=== PATIENT | male | born 1950 | race Caucasian/White ===

== ENCOUNTER → 2017-05-09 | Outpatient (CLI) | payer MEDICARE | LOC: RAD 09:18 | DX: M79.604 Pain in right leg (principal); M16.0 Bilateral primary osteoarthritis of hip ==

== ENCOUNTER → 2017-05-14 | Outpatient (CLI) | payer MEDICARE | LOC: RAD 14:00 | DX: M54.5 Low back pain (principal); M48.07 Spinal stenosis, lumbosacral region; M48.06 Spinal stenosis, lumbar region ==

== ENCOUNTER 2018-03-29 09:30 | Outpatient (RCR) | payer MEDICARE | END 2018-03-29 10:00 | disposition home or self-care (01) | LOC: PT 09:30 | DX: M51.36 Other intervertebral disc degeneration, lumbar region (principal) ==

== ENCOUNTER → 2019-06-24 | Outpatient (CLI) | payer MEDICARE ==
[2019-06-24 15:25] LABS: EOS # 0.1 (0.04-0.40); EOS % 1.4 % (0.0-4.0); HEMOGLOBIN 15.8 g/dL (13.5-18.0); LYMPH# 2.2 (1.50-4.00); MEAN CELL VOLUME 92 fl (78-100); MEAN CORPUSCULAR HEMOGLOBIN 31 pg (27-31); MEAN CORPUSCULAR HGB CONC 34 g/dL (33-37); MEAN PLATELET VOLUME 8.9 fl (7.4-10.4); MONO # 0.7 (0.20-0.80); NEU # 6.5 (1.40-6.50); PLATELET COUNT 287 K/mm3 (130-400); RED BLOOD COUNT 5.11 M/mm3 (4.20-5.60); WHITE BLOOD COUNT 9.7 K/mm3 (4.8-10.8)
[2019-06-24 17:31] LABS: ALBUMIN 4.1 g/dL (3.4-4.8); POTASSIUM 4.2 mmol/L (3.5-5.1)
[2019-06-24 17:32] LABS: CALCIUM 9.3 mg/dL (8.3-10.5)
[2019-06-24 17:33] LABS: TOTAL PROTEIN 7.1 g/dL (6.2-8.1)
[2019-06-24 17:35] LABS: TOTAL BILIRUBIN 0.5 mg/dL (0.2-1.2)
== END ==
LOC: LAB 15:03
PROVIDERS: Family Medicine
DX: Z00.00 Encounter for general adult medical examination without abnormal findings (principal); Z12.5 Encounter for screening for malignant neoplasm of prostate; Z12.11 Encounter for screening for malignant neoplasm of colon; Z13.220 Encounter for screening for lipoid disorders; I10 Essential (primary) hypertension

== ENCOUNTER → 2019-08-08 | Outpatient (CLI) | payer MEDICARE ==
[2019-08-08 08:39] LABS: HEMATOCRIT 47.3 % (42.0-52.0); RED BLOOD COUNT 5.07 M/mm3 (4.20-5.60); RED CELL DISTRIBUTION WIDTH 13.3 % (11.5-14.5); WHITE BLOOD COUNT 7.5 K/mm3 (4.8-10.8)
[2019-08-08 08:43] LABS: CALCIUM 9.1 mg/dL (8.3-10.5)
[2019-08-08 08:45] LABS: TOTAL PROTEIN 7.1 g/dL (6.2-8.1)
[2019-08-08 08:46] LABS: TOTAL BILIRUBIN 0.9 mg/dL (0.2-1.2)
[2019-08-08 22:19] LABS: FOLATE (FOLIC ACID) 15.2 ng/mL (7.0-31.4)
[2019-08-09 01:22] LABS: CERULOPLASMIN 22 mg/dL (18-36)
[2019-08-09 16:12] LABS: .COPPER,S 0.91 mcg/mL (())
[2019-08-12 10:57] LABS: VITAMIN E 12.5 mg/L (())
[2019-08-12 15:20] LABS: VITAMIN B1 143 nmol/L (70-180)
== END ==
LOC: LAB 08:03
PROVIDERS: Psychiatry & Neurology Neurology
DX: G20 Parkinson's disease (principal); G60.9 Hereditary and idiopathic neuropathy, unspecified

== ENCOUNTER → 2019-08-19 | Outpatient (CLI) | payer MEDICARE ==
[2019-08-19 11:30] LABS: ALBUMIN 4.3 g/dL (3.4-4.8); POTASSIUM 4.3 mmol/L (3.5-5.1)
[2019-08-19 11:31] LABS: CALCIUM 9.8 mg/dL (8.3-10.5)
[2019-08-19 11:33] LABS: TOTAL PROTEIN 7.6 g/dL (6.2-8.1)
[2019-08-19 11:34] LABS: TOTAL BILIRUBIN 0.7 mg/dL (0.2-1.2)
== END ==
LOC: LAB 10:26
PROVIDERS: Family Medicine
DX: R73.9 Hyperglycemia, unspecified (principal)

== ENCOUNTER → 2020-06-29 | Outpatient (CLI) | payer MEDICARE ==
[2020-06-29 10:00] LABS: EOS # 0.1 (0.04-0.40); EOS % 1.3 % (0.0-4.0); HEMATOCRIT 48.4 % (42.0-52.0); HEMOGLOBIN 16.2 g/dL (13.5-18.0); LYMPH# 1.7 (1.50-4.00); MEAN CELL VOLUME 91 fl (78-100); MEAN CORPUSCULAR HEMOGLOBIN 31 pg (27-31); MEAN CORPUSCULAR HGB CONC 34 g/dL (33-37); MEAN PLATELET VOLUME 8.9 fl (7.4-10.4); MONO # 0.7 (0.20-0.80); NEU # 6.5 (1.40-6.50); PLATELET COUNT 284 K/mm3 (130-400); RED CELL DISTRIBUTION WIDTH 13.1 % (11.5-14.5); WHITE BLOOD COUNT 9.1 K/mm3 (4.8-10.8)
[2020-06-29 10:06] LABS: ALBUMIN 4.2 g/dL (3.4-4.8); POTASSIUM 4.4 mmol/L (3.5-5.1); SODIUM 139 mmol/L (136-145)
[2020-06-29 10:07] LABS: CALCIUM 9.3 mg/dL (8.3-10.5)
[2020-06-29 10:09] LABS: GLUCOSE 156 mg/dL (75-110)
[2020-06-29 10:10] LABS: CARBON DIOXIDE 22 mmol/L (23-31); TOTAL BILIRUBIN 0.6 mg/dL (0.2-1.2)
[2020-06-29 10:14] LABS: AST-SGOT 15 U/L (5-34)
[2020-06-29 10:16] LABS: ALT/SGPT < 6 U/L (0-55)
== END ==
LOC: LAB 09:47
PROVIDERS: Physician Assistant
DX: Z12.5 Encounter for screening for malignant neoplasm of prostate (principal); Z13.29 Encounter for screening for other suspected endocrine disorder; I10 Essential (primary) hypertension; R73.9 Hyperglycemia, unspecified; G20 Parkinson's disease; E78.5 Hyperlipidemia, unspecified

== ENCOUNTER → 2020-11-16 | Outpatient (CLI) | payer MEDICARE ==
[2020-11-16 16:15] LABS: ALBUMIN 4.3 g/dL (3.4-4.8); POTASSIUM 4.1 mmol/L (3.5-5.1)
[2020-11-16 16:17] LABS: CALCIUM 9.1 mg/dL (8.3-10.5)
[2020-11-16 16:18] LABS: TOTAL PROTEIN 7.3 g/dL (6.2-8.1)
[2020-11-16 16:20] LABS: TOTAL BILIRUBIN 0.5 mg/dL (0.2-1.2)
== END ==
LOC: LAB 15:54
PROVIDERS: Family Medicine
DX: E11.9 Type 2 diabetes mellitus without complications (principal); I10 Essential (primary) hypertension; G20 Parkinson's disease

== ENCOUNTER → 2021-03-11 | Outpatient (CLI) | payer MEDICARE | LOC: LAB 11:23 | DX: E11.9 Type 2 diabetes mellitus without complications (principal) ==

== ENCOUNTER → 2021-05-18 | Outpatient (CLI) | payer MEDICARE ==
[2021-05-18 11:43] LABS: BASO # 0.02 (0.02-0.10); EOS # 0.12 (0.04-0.40); EOS % 1.3 % (0.0-4.0); HEMATOCRIT 48.6 % (42.0-52.0); HEMOGLOBIN 16.4 g/dL (13.5-18.0); LYMPH# 2.17 (1.50-4.00); MEAN CELL VOLUME 93 fl (78-100); MEAN CORPUSCULAR HEMOGLOBIN 31 pg (27-31); MEAN CORPUSCULAR HGB CONC 34 g/dL (33-37); MEAN PLATELET VOLUME 8.6 fl (7.4-10.4); MONO # 0.66 (0.20-0.80); NEU # 6.36 (1.40-6.50); PLATELET COUNT 262 K/mm3 (130-400); RED BLOOD COUNT 5.24 M/mm3 (4.20-5.60); RED CELL DISTRIBUTION WIDTH 12.3 % (11.5-14.5); WHITE BLOOD COUNT 9.4 K/mm3 (4.8-10.8)
[2021-05-18 11:46] LABS: ALBUMIN 4.3 g/dL (3.4-4.8); POTASSIUM 4.5 mmol/L (3.5-5.1)
[2021-05-18 11:47] LABS: CALCIUM 9.4 mg/dL (8.3-10.5)
[2021-05-18 11:49] LABS: TOTAL PROTEIN 7.4 g/dL (6.2-8.1)
[2021-05-18 11:50] LABS: TOTAL BILIRUBIN 0.8 mg/dL (0.2-1.2)
== END ==
LOC: LAB 11:05
PROVIDERS: Family Medicine
DX: Z00.00 Encounter for general adult medical examination without abnormal findings (principal); E78.5 Hyperlipidemia, unspecified; E11.9 Type 2 diabetes mellitus without complications

== ENCOUNTER → 2021-11-22 | Outpatient (CLI) | payer MEDICARE | LOC: LAB 11:50 | DX: M19.011 Primary osteoarthritis, right shoulder (principal); M51.36 Other intervertebral disc degeneration, lumbar region; E11.9 Type 2 diabetes mellitus without complications ==

== ENCOUNTER 2021-12-26 10:00 | Outpatient (RCR) | payer MEDICARE | END 2022-01-19 | disposition still patient (30) | LOC: PT | DX: M51.36 Other intervertebral disc degeneration, lumbar region (principal) | CPT/HCPCS: G0283-GP ==

== ENCOUNTER → 2022-06-27 | Outpatient (CLI) | payer MEDICARE | LOC: RAD 08:20 | DX: J20.9 Acute bronchitis, unspecified (principal) ==

== ENCOUNTER → 2022-07-07 | Outpatient (CLI) | payer MEDICARE | LOC: LAB 14:49 | DX: Z00.00 Encounter for general adult medical examination without abnormal findings (principal); E11.9 Type 2 diabetes mellitus without complications; E78.5 Hyperlipidemia, unspecified; I10 Essential (primary) hypertension; E66.9 Obesity, unspecified; G20 Parkinson's disease ==

== ENCOUNTER → 2022-11-20 | Outpatient (CLI) | payer MEDICARE | LOC: RAD 09:54 | DX: G31.84 Mild cognitive impairment of uncertain or unknown etiology (principal) | CPT/HCPCS: Q9967 ==

== ENCOUNTER → 2022-12-04 | Outpatient (CLI) | payer MEDICARE | LOC: LAB 09:47 | DX: E11.9 Type 2 diabetes mellitus without complications (principal) ==

== ENCOUNTER → 2023-12-18 | Outpatient (CLI) | payer MEDICARE ==
[2023-12-18 10:58] LABS: BASO # 0.03 K/mm3 (0.02-0.10); EOS # 0.18 K/mm3 (0.04-0.40); EOS % 2.2 % (0.0-4.0); HEMATOCRIT 47.2 % (42.0-52.0); HEMOGLOBIN 16.1 g/dL (13.5-18.0); LYMPH# 2.19 K/mm3 (1.50-4.00); MEAN CELL VOLUME 92 fl (78-100); MEAN CORPUSCULAR HEMOGLOBIN 31 pg (27-31); MEAN CORPUSCULAR HGB CONC 34 g/dL (33-37); MEAN PLATELET VOLUME 8.7 fl (7.4-10.4); MONO # 0.57 K/mm3 (0.20-0.80); NEU # 5.18 K/mm3 (1.40-6.50); PLATELET COUNT 274 K/mm3 (130-400); RED BLOOD COUNT 5.14 M/mm3 (4.20-5.60); RED CELL DISTRIBUTION WIDTH 12.1 % (11.5-14.5); WHITE BLOOD COUNT 8.2 K/mm3 (4.8-10.8)
[2023-12-18 11:09] LABS: ALBUMIN 4.2 g/dL (3.4-4.8)
[2023-12-18 11:10] LABS: CALCIUM 9.5 mg/dL (8.3-10.5)
[2023-12-18 11:13] LABS: TOTAL BILIRUBIN 0.7 mg/dL (0.2-1.2)
== END ==
LOC: LAB 10:43
PROVIDERS: Physician Assistant
DX: R60.0 Localized edema (principal)

== ENCOUNTER → 2024-01-04 | Outpatient (CLI) | payer MEDICARE ==
[~2024-01-04] MED LIST: CARBIDOPA/LEVODOPA PO; HYDROCHLOROTHIA1 T14 PO; METFORMIN ER500 MG PO; SERTRALINE50 MG PO
== END ==
LOC: LAB 13:21
DX: E11.9 Type 2 diabetes mellitus without complications (principal); E78.5 Hyperlipidemia, unspecified

== ENCOUNTER 2024-08-25 23:17 | Emergency (ER) | payer MEDICARE ==
[~2024-08-25] VITALS: Wt 102.7 kg
[2024-08-25] MEDS ORDERED: ZESTRIL10 M1 PO (23:45)
[2024-08-25] MEDS ORDERED: ELIQUIS5 MG PO (23:45)
[2024-08-25] MEDS ORDERED: dilTIAZem 25 MG/5 ML VIAL IV ONE (23:45)
[2024-08-25] MEDS ORDERED: Ondansetron 4 MG/2 ML VIAL IV ONE (23:45)
[2024-08-25] MEDS ORDERED: HYDROCHLOROTH12.5 M1 PO (23:45)
[2024-08-25] MEDS ORDERED: CARDIZEM CD180 M1 PO (23:46)
[2024-08-25 23:53] LABS: BASO # 0.01 K/mm3 (0.02-0.10); EOS # 0.25 K/mm3 (0.04-0.40); EOS % 2.7 % (0.0-4.0); HEMATOCRIT 44.1 % (42.0-52.0); HEMOGLOBIN 15.1 g/dL (13.5-18.0); LYMPH# 2.49 K/mm3 (1.50-4.00); MEAN CELL VOLUME 92 fl (78-100); MEAN CORPUSCULAR HEMOGLOBIN 32 pg (27-31); MEAN CORPUSCULAR HGB CONC 34 g/dL (33-37); MEAN PLATELET VOLUME 8.9 fl (7.4-10.4); MONO # 0.76 K/mm3 (0.20-0.80); NEU # 5.84 K/mm3 (1.40-6.50); PLATELET COUNT 249 K/mm3 (130-400); RED CELL DISTRIBUTION WIDTH 12.5 % (11.5-14.5); WHITE BLOOD COUNT 9.4 K/mm3 (4.8-10.8)
[2024-08-25 23:58] LABS: SODIUM 139 mmol/L (136-145)
[2024-08-26] LABS: GLUCOSE 185 mg/dL (75-110); TOTAL PROTEIN 6.6 g/dL (6.2-8.1)
[2024-08-26 00:01] LABS: CARBON DIOXIDE 21 mmol/L (23-31)
[2024-08-26 00:02] LABS: TOTAL BILIRUBIN 0.4 mg/dL (0.2-1.2)
[2024-08-26 00:06] LABS: AST-SGOT 9 U/L (5-34)
[2024-08-26 00:07] LABS: MAGNESIUM 1.98 mg/dL (1.60-2.60)
[2024-08-26 00:08] LABS: ALT/SGPT < 6 U/L (0-55)
[2024-08-26] MEDS ORDERED: NS 1,000 ML IV SCH (00:15)
[2024-08-26] MEDS ORDERED: Morphine 4 MG/ML VIAL IV ONE (01:00)
[2024-08-26] MEDS ORDERED: fentaNYL 100 MCG/2 ML VIAL IV ONE (01:15)
[2024-08-26 03:02] VITALS: BP 138/64
== END 2024-08-26 03:02 | disposition short-term general hospital (02) ==
LOC: ED 23:17
PROVIDERS: Physician Assistant
DX: I48.91 Unspecified atrial fibrillation (principal)
CPT/HCPCS: J2270; J2405; J3010; J7030

== ENCOUNTER → 2024-12-02 | Outpatient (CLI) | payer MEDICARE ==
[~2024-12-02] MED LIST changes: +CARDIZEM CD180 M1 PO; +ELIQUIS5 MG PO; +HYDROCHLOROTH12.5 M1 PO; +ZESTRIL10 M1 PO
[2024-12-02 13:00] LABS: EOS % 2.4 % (0.0-4.0); HEMATOCRIT 44.4 % (42.0-52.0); LYMPH# 2.03 K/mm3 (1.50-4.00); MEAN CELL VOLUME 93 fl (78-100); MEAN CORPUSCULAR HEMOGLOBIN 31 pg (27-31); MEAN CORPUSCULAR HGB CONC 34 g/dL (33-37); MONO # 0.67 K/mm3 (0.20-0.80); NEU # 5.41 K/mm3 (1.40-6.50); PLATELET COUNT 275 K/mm3 (130-400); RED BLOOD COUNT 4.78 M/mm3 (4.20-5.60); RED CELL DISTRIBUTION WIDTH 12.4 % (11.5-14.5); WHITE BLOOD COUNT 8.3 K/mm3 (4.8-10.8)
[2024-12-02 13:01] LABS: ALBUMIN 4.1 g/dL (3.4-4.8); SODIUM 138 mmol/L (136-145)
[2024-12-02 13:02] LABS: CALCIUM 9.5 mg/dL (8.3-10.5)
[2024-12-02 13:03] LABS: GLUCOSE 195 mg/dL (75-110)
[2024-12-02 13:04] LABS: TOTAL PROTEIN 7.2 g/dL (6.2-8.1)
[2024-12-02 13:05] LABS: CARBON DIOXIDE 24 mmol/L (23-31); TOTAL BILIRUBIN 0.4 mg/dL (0.2-1.2)
[2024-12-02 13:09] LABS: AST-SGOT 7 U/L (5-34)
[2024-12-02 13:10] LABS: ALT/SGPT < 6 U/L (0-55)
[2024-12-02 14:08] LABS: PROTHROMBIN TIME 23.9 SECONDS (9.0-12.0)
== END ==
LOC: LAB 12:38
PROVIDERS: Internal Medicine
DX: I10 Essential (primary) hypertension (principal)

== ENCOUNTER → 2025-01-23 | Outpatient (CLI) | payer MEDICARE | LOC: RAD 10:02 | DX: Z01.810 Encounter for preprocedural cardiovascular examination (principal); I65.23 Occlusion and stenosis of bilateral carotid arteries; I35.1 Nonrheumatic aortic (valve) insufficiency ==